=== PATIENT | female | born 1985 | race Caucasian/White ===

== ENCOUNTER → 2016-07-22 | Outpatient (CLI) | payer OTHER | LOC: OD 15:27 | PROVIDERS: ATTEND Nurse Practitioner Primary Care | DX: Z32.01 Encounter for pregnancy test, result positive (principal); N92.6 Irregular menstruation, unspecified; Z87.59 Personal history of other complications of pregnancy, childbirth and the puerperium | CPT/HCPCS: 36415; 84144; 84702 ==

== ENCOUNTER → 2016-07-29 | Outpatient (CLI) | payer OTHER | LOC: OD 17:13 | PROVIDERS: ATTEND Nurse Practitioner Primary Care | DX: Z32.01 Encounter for pregnancy test, result positive (principal) | CPT/HCPCS: 36415; 84702 ==

== ENCOUNTER → 2016-08-01 | Outpatient (CLI) | payer OTHER | LOC: OD 07:05 | PROVIDERS: ATTEND Nurse Practitioner Primary Care | DX: O20.0 Threatened abortion (principal) | CPT/HCPCS: 36415; 84702 ==

== ENCOUNTER → 2016-08-04 | Outpatient (CLI) | payer OTHER | LOC: OD 07:22 | PROVIDERS: ATTEND Nurse Practitioner Primary Care | DX: O20.0 Threatened abortion (principal) | CPT/HCPCS: 36415; 84702 ==

== ENCOUNTER → 2016-08-07 | Outpatient (CLI) | payer OTHER | LOC: OD 07:13 | PROVIDERS: ATTEND Nurse Practitioner Primary Care | DX: O20.0 Threatened abortion (principal) | CPT/HCPCS: 36415; 84702 ==

== ENCOUNTER → 2016-08-11 | Outpatient (CLI) | payer OTHER | LOC: OD 07:45 | PROVIDERS: ATTEND Nurse Practitioner Primary Care | DX: O20.0 Threatened abortion (principal) | CPT/HCPCS: 36415; 84702 ==

== ENCOUNTER → 2016-08-13 | Outpatient (CLI) | payer OTHER | LOC: OD 07:05 | PROVIDERS: ATTEND Nurse Practitioner Primary Care | DX: O20.0 Threatened abortion (principal) | CPT/HCPCS: 36415; 84702 ==

== ENCOUNTER → 2016-08-15 | Outpatient (CLI) | payer OTHER | LOC: OD 09:00 | PROVIDERS: ATTEND Nurse Practitioner Primary Care | DX: O20.0 Threatened abortion (principal) | CPT/HCPCS: 36415; 84702 ==

== ENCOUNTER → 2016-08-18 | Outpatient (CLI) | payer OTHER | LOC: OD 10:04 | PROVIDERS: ATTEND Nurse Practitioner Primary Care | DX: O20.0 Threatened abortion (principal) | CPT/HCPCS: 36415; 84702; 84703 ==

== ENCOUNTER → 2016-09-01 | Outpatient (CLI) | payer OTHER | LOC: OD 09:20 | PROVIDERS: ATTEND Obstetrics & Gynecology | DX: O03.9 Complete or unspecified spontaneous abortion without complication (principal) | CPT/HCPCS: 36415; 84702 ==

== ENCOUNTER → 2016-09-04 | Outpatient (CLI) | payer OTHER | LOC: OD 08:05 | PROVIDERS: ATTEND Obstetrics & Gynecology | DX: O02.81 Inappropriate change in quantitative human chorionic gonadotropin (hCG) in early pregnancy (principal) | CPT/HCPCS: 36415; 84702 ==

== ENCOUNTER → 2016-09-17 | Outpatient (CLI) | payer OTHER | LOC: OD 10:43 | PROVIDERS: ATTEND Obstetrics & Gynecology | DX: O03.9 Complete or unspecified spontaneous abortion without complication (principal) | CPT/HCPCS: 36415; 84702 ==

== ENCOUNTER → 2016-09-25 | Outpatient (CLI) | payer OTHER | LOC: OD 11:11 | PROVIDERS: ATTEND Obstetrics & Gynecology | DX: Z09 Encounter for follow-up examination after completed treatment for conditions other than malignant neoplasm (principal); O03.9 Complete or unspecified spontaneous abortion without complication | CPT/HCPCS: 36415; 84702 ==

== ENCOUNTER → 2016-10-09 | Outpatient (CLI) | payer OTHER | LOC: OD 07:15 | PROVIDERS: ATTEND Obstetrics & Gynecology | DX: O03.9 Complete or unspecified spontaneous abortion without complication (principal) | CPT/HCPCS: 36415; 84702 ==

== ENCOUNTER → 2016-12-09 | Outpatient (CLI) | payer OTHER ==
[2016-12-13 14:42] LABS: MULLERIAN HORMONE (AMH) AB 12.1 ng/mL (.)
== END ==
LOC: OD 07:03
PROVIDERS: ATTEND Nurse Practitioner Primary Care
DX: N97.9 Female infertility, unspecified (principal); N96 Recurrent pregnancy loss
CPT/HCPCS: 36415; 81241; 83516; 83525; 88230; 88262